=== PATIENT | female | born 1985 | race Caucasian/White ===

== ENCOUNTER 2022-04-11 23:45 | Emergency (ER) | payer BC, SELFPAY ==
--- NOTE | ~2022-04-11 | XR_ITS ---
EXAMINATION: XR CHEST CLINICAL INFORMATION: Palpitations COMPARISON: None TECHNIQUE: Frontal view of the chest was obtained. FINDINGS: No significant abnormality is noted involving the heart, lungs, mediastinum, bony thorax or soft tissues. XR/XR chest 1V IMPRESSION: Unremarkable examination.
--- NOTE | 2022-04-11 23:49 | ECG_ITS ---
Test Reason : PALPITATIONS Blood Pressure : / mmHG Vent. Rate : 118 BPM Atrial Rate : 118 BPM P-R Int : 152 ms QRS Dur : 078 ms QT Int : 314 ms P-R-T Axes : 078 083 024 degrees QTc Int : [address] & T wave abnormality, consider inferior ischemia Abnormal ECG No previous ECGs available Referred By: Generic ED Physician Electronically Signed By:WINSTON ABEL
[2022-04-12 00:09] LABS: MANUAL DIFF FLAG NO
[2022-04-12 00:12] LABS: Basophils Percent Auto 0.5 % (0-2); Eosinophils Absolute Auto 0.1 X10*3/uL (0.0-0.4); Eosinophils Percent Auto 1.7 % (0-4); Hematocrit 38.8 % (37.0-47.0); Hemoglobin 13.3 g/dl (12.0-16.0); Imm Gran Abs Auto 0.01 X10*3/uL (0.00-0.03); Imm Gran Pct Auto 0.2 % (0.0-0.4); Lymphocytes Absolute Auto 1.9 X10*3/uL (1.2-4.9); Lymphocytes Percent Auto 31.7 % (20-40); Mean Corpuscular HGB Conc 34.3 g/dl (31.0-35.0); Mean Corpuscular Hemoglobin 30.2 pg (27.0-33.0); Mean Corpuscular Volume 88.2 fL (80.0-98.0); Mean Platelet Volume 10.5 fL (9.4-12.3); Monocytes Absolute Auto 0.7 X10*3/uL (0.1-1.2); Monocytes Percent Auto 11.4 % (2-11); Neutrophils Absolute Auto 3.3 x10*3/uL (2.0-8.3); Neutrophils Percent Auto 54.5 % (45-73); Platelet Count 252 X10*3/uL (160-400); Red Cell Distribution Width 11.9 % (11.0-16.0)
[2022-04-12 00:14] VITALS: BP 150/78; PULSE 121; RESP 18; TEMP 37.1; O2SAT 100; BMI 22.1
[2022-04-12 00:24] LABS: Anion Gap 16 (12-20); Blood Urea Nitrogen 12 mg/dL (9-16); Calcium 9.4 mg/dL (8.4-10.2); Carbon Dioxide 21 mmol/L (22-29); Chloride 103 mmol/L (96-108); Creatinine Clr Calc Pharmacy 93.7; Estimated Glomerular Filt Rate > 60; Glucose Random 94 mg/dL (60-115); Potassium 3.3 mmol/L (3.3-5.1); Sodium 137 mmol/L (135-145)
[2022-04-12 00:28] LABS: Troponin-I High Sensitivity < 3.5 ng/L (<3.5-17.0)
[2022-04-12 00:36] VITALS: BP 140/79; PULSE 119; RESP 15; TEMP 37; O2SAT 98
[2022-04-12 00:45] LABS: COVID-19 Test Negative (Negative)
--- OUTSIDE RECORDS SUMMARY | 2022-04-12 00:53 | XMS_ITS | Continuity of Care Document ---
:1985 Author Organization [facility] Address [address] [place] [address]- Care Team Providers Name Role Phone Viviana Smith MD Primary Care Physician [place] [facility] [place] 04/28/19 - 08/26/[address] [address]- [facility] Discharge Disposition: A-D/C Home Attending Physician: Telly Hdz MD Admitting Physician: Telly Hdz MD Referring Physician: Telly Hdz MD Allergies, Adverse Reactions, Alerts Substance Reaction Severity Status NKA Active Immunizations Not Given Vaccine Date Status Refusal Reason pneumococcal 23-valent vaccine 12/04/18 Not Given P atient Refuses Medications norethindrone 0.35 mg oral tablet 1 tablet = 0.35 mg, By Mouth, Daily, # 28 tablet, 6 Refills, Maintenance, 03/15/19 13:47:51 EDT, Tablet Start Date: 03/15/19 Stop Date: 09/27/19 Status: Ordered Problem List Condition Effective Dates Status Health Status Informant Contraception management(Confirmed) Active h/o Migraine(Confirmed) Active Oral herpes(Confirmed) Active Pre-eclampsia, severe(Confirmed) Active Social History Social History Type Response Smoking Status Never (less than 100 in life time) entered on: 11/23/18 Sex
--- OUTSIDE RECORDS SUMMARY | 2022-04-12 00:53 | XMS_ITS | Continuity of Care Document ---
:1985 Author Organization [facility] Address [address] [place] [id number]- Care Team Providers Name Role Phone Viviana Smith MD Primary Care Physician Encounter [facility] [place] Date(s): 01/12/20 - 02/11/[address] [address]- [facility] Attending Physician: Roopa Justin Admitting Physician: Ropoa Justin Referring Physician: Roopa Justin Allergies, Adverse Reactions, Alerts Substance Reaction Severity [...]
--- OUTSIDE RECORDS SUMMARY | 2022-04-12 00:53 | XMS_ITS | Continuity of Care Document ---
:1985 Author Organization [facility] Address [address] [place] [address]- Care Team Providers Name Role Phone Viviana Smith MD Primary Care Physician [place] [facility] [place]): 05/29/19 - 10/29/[address] [address]- [facility] Discharge Disposition: A-D/C Home Attending Physician: Viviana Smith MD Admitting Physician: Viviana Smith MD Referring Physician: Viviana Smith MD Allergies, Adverse Reactions, Alerts Substance Reaction [...]
--- OUTSIDE RECORDS SUMMARY | 2022-04-12 00:53 | XMS_ITS | Continuity of Care Document ---
:1985 Author Organization [facility] Address [address] [place] [address]- Care Team Providers Name Role Phone Viviana Smith MD Primary Care Physician [place] [facility] [place] [facility] [place] - 11/02/[address] [address]- [facility] Attending Physician: Not on Staff, Attending MD Referring Physician: Viviana Smith MD Allergies, [...]
--- OUTSIDE RECORDS SUMMARY | 2022-04-12 00:53 | XMS_ITS | Continuity of Care Document ---
:1985 Author Organization [facility] Address [address] [place] [address]- Care Team Providers Name Role Phone Viviana Smith MD Primary Care Physician [place] [facility] [place]): 09/30/19 - 02/11/[address] [address]- [facility] Attending Physician: Not on Staff, Attending MD Referring Physician: Vviiana Smith MD Allergies, Adverse Reactions, Alerts Substance [...]
[2022-04-12 01:45] VITALS: BP 136/67; PULSE 122; RESP 15; TEMP 37.1; O2SAT 99
[2022-04-12 02:09] LABS: Appearance Urine Clear; Color Urine Yellow; Glucose Urine UA Negative (Negative); Leukocyte Esterase Urine Negative (Negative); Nitrite Urine Negative (Negative); PH 6.5 (5.0-9.0); Specific Gravity - Urine <= 1.005 (1.005-1.025); Urine Blood Negative (Negative); Urine Ketones Negative (Negative); Urine Protein Negative (Neg-Trace)
[2022-04-12 02:15] LABS: HCG Quantitative < 2 mIU/mL
--- NOTE | 2022-04-12 02:19 | ED_ITS ---
HPI - Arrhythmia/Palpitations General Chief Complaint: Arrhythmia/Palpitations Stated Complaint: Palpitations Time Seen by Provider: 04/12/22 01:48 Source: patient Mode of arrival: ambulatory History of Present Illness HPI narrative: 36-year-old female who presents with concerns regarding palpitations that started last night approximately 2230 while she was relaxing and viewing social media. Patient denies any particular stress or anxiety at that time but began feeling heart palpitations without sweating or dizziness and denies any nausea or vomiting. Patient states that she is had these before but generally it is more transient and the palpitation see experience this evening persisted for several minutes. Patient does not currently feel palpitations (her heart rate is noted to be 122). She otherwise denies any prescription medications, use of alcohol, but states she does suffer from anxiety and being hyper focused on her body. Related Data Allergies Allergy/AdvReac Type Severity Reaction Status Date / Time No Known Allergies Allergy Unverified 03/29/20 19:37 [No Known Allergies*] Review of Systems Review of Systems: Pertinent positives and negatives as stated in HPI 10 point review of systems is otherwise negative. PMFSH Past Medical History Source: nursing notes reviewed Social History Social History Advance Directives: No Advance Directives Information Provided: Yes Physical Exam Vital Signs: Vital Signs: Last Vital Signs Temp 99.0 F 04/12/22 03:58 Pulse 95 04/12/22 03:58 Resp 16 04/12/22 03:58 BP 126/72 04/12/22 03:58 Pulse Ox 100 04/12/22 03:58 O2 Del Method 04/12/22 03:58 BMI result Body Mass Index 22.1 VITAL SIGNS: Reviewed. GENERAL: Well developed, well nourished, quite thin, in no acute distress. HEAD: Normocephalic/atraumatic EYES: PERRLA, EOMI EARS: Ext canals without abnormality OROPHARYNX: no oral lesions noted, posterior pharynx clear LUNGS: Normal breath sounds. No adventitious sounds or accessory muscle use. SpO2<99> CARDIOVASCULAR: Regular rate and rhythm without noted murmurs ABDOMEN: Soft, non-tender, non-distended with bowel sounds. MUSCULOSKELETAL: No tenderness, deformities, or effusions noted on gross inspection. EXTREMITIES: No cyanosis, clubbing or edema. SKIN: Inspection of the skin reveals no rashes NEUROLOGIC: Alert and oriented x 4. Strength and sensation to light touch were grossly intact x 4. Course Course Course Narrative: 36-year-old female with history and clinical presentation consistent with possible anxiety but will evaluate for anemia, infection, thyroid etiology patient is otherwise hemodynamically stable and appears well. Of note, on observing the color of her urine it is almost color of water. Review of all investigations otherwise negative for acute findings to better explain patient's current presentation. Heart rate is noted to be in the 90s at this time. All results discussed with her at bedside and she understands that she needs to follow-up with primary care provider and further discuss other out patient interventions as she has already had a Holter evaluation. MDM - Arrhythmia/Palpitations Lab Data Result diagrams: 04/11/22 23:58 04/11/22 23:58 Labs: Lab Results 04/11/22 04/11/22 04/11/22 Range/Units 23:58 23:58 23:58 WBC 6.0 (4.8-10.8) X10*3/uL RBC 4.40 (4.20-5.50) X10*6/uL Hgb 13.3 (12.0-16.0) g/dl Hct 38.8 (37.0-47.0) % MCV 88.2 (80.0-98.0) fL MCH 30.2 (27.0-33.0) pg MCHC 34.3 (31.0-35.0) g/dl RDW 11.9 (11.0-16.0) % Plt Count 252 (160-400) X10*3/uL MPV 10.5 (9.4-12.3) fL Immature Gran % (Auto) 0.2 (0.0-0.4) % Neut % (Auto) 54.5 (45-73) % Lymph % (Auto) 31.7 (20-40) % [place] % (Auto) 11.4 H (2-11) % Eos % (Auto) 1.7 (0-4) % Baso % (Auto) 0.5 (0-2) % Lymph # (Auto) 1.9 (1.2-4.9) X10*3/uL [place] # (Auto) 0.7 (0.1-1.2) X10*3/uL Eos # (Auto) 0.1 (0.0-0.4) X10*3/uL Baso # (Auto) 0.0 (0.0-0.2) X10*3/uL Abs Immat Gran (auto) 0.01 (0.00-0.03) X10*3/uL Absolute Neuts (auto) 3.3 (2.0-8.3) x10*3/uL Absolute Nucleated RBC 0.000 (0.0-0.012) X10*3/uL Nucleated RBC % (auto) 0.0 (0.0-0.2) /100WBC Sodium 137 (135-145) mmol/L Potassium 3.3 (3.3-5.1) mmol/L Chloride 103 (96-108) mmol/L Carbon Dioxide 21 L (22-29) mmol/L Anion Gap 16 (12-20) BUN 12 (9-16) mg/dL Creatinine 0.70 (0.5-1.4) mg/dL Estim Creat Clear Calc 93.7 Estimated GFR > 60 Random Glucose 94 (60-115) mg/dL Calcium 9.4 (8.4-10.2) mg/dL Troponin I High Sens (<3.5-17.0) ng/L TSH 3.98 (0.32-4.0) uIU/mL Beta HCG, Quant < 2 mIU/mL Urine Color Urine Appearance Urine pH (5.0-9.0) Ur Specific [place] (1.005-1.025) Urine Protein (Neg-Trace) mg/dL Urine Glucose (UA) (Negative) mg/dL Urine Ketones (Negative) mg/dL Urine Blood (Negative) Urine Nitrite (Negative) Ur Leukocyte Esterase (Negative) COVID-19 (GEOVANNI) Negative (Negative) COVID-19 Clin Com See Note 04/11/22 04/12/22 Range/Units 23:58 02:03 WBC (4.8-10.8) X10*3/uL RBC (4.20-5.50) X10*6/uL Hgb (12.0-16.0) g/dl Hct (37.0-47.0) % MCV (80.0-98.0) fL MCH (27.0-33.0) pg MCHC (31.0-35.0) g/dl RDW (11.0-16.0) % Plt Count (160-400) X10*3/uL MPV (9.4-12.3) fL Immature Gran % (Auto) (0.0-0.4) % Neut % (Auto) (45-73) % Lymph % (Auto) (20-40) % [place] % (Auto) (2-11) % Eos % (Auto) (0-4) % Baso % (Auto) (0-2) % Lymph # (Auto) (1.2-4.9) X10*3/uL [place] # (Auto) (0.1-1.2) X10*3/uL Eos # (Auto) (0.0-0.4) X10*3/uL Baso # (Auto) (0.0-0.2) X10*3/uL Abs Immat Gran (auto) (0.00-0.03) X10*3/uL Absolute Neuts (auto) (2.0-8.3) x10*3/uL Absolute Nucleated RBC (0.0-0.012) X10*3/uL Nucleated RBC % (auto) (0.0-0.2) /100WBC Sodium (135-145) mmol/L Potassium (3.3-5.1) mmol/L Chloride (96-108) mmol/L Carbon Dioxide (22-29) mmol/L Anion Gap (12-20) BUN (9-16) mg/dL Creatinine (0.5-1.4) mg/dL Estim Creat Clear Calc Estimated GFR Random Glucose (60-115) mg/dL Calcium (8.4-10.2) mg/dL Troponin I High Sens < 3.5 (<3.5-17.0) ng/L TSH (0.32-4.0) uIU/mL Beta HCG, Quant mIU/mL Urine Color Yellow Urine Appearance Clear Urine pH 6.5 (5.0-9.0) Ur Specific [place] <= 1.005 (1.005-1.025) Urine Protein Negative (Neg-Trace) mg/dL Urine Glucose (UA) Negative (Negative) mg/dL Urine Ketones Negative (Negative) mg/dL Urine Blood Negative (Negative) Urine Nitrite Negative (Negative) Ur Leukocyte Esterase Negative (Negative) COVID-19 (GEOVANNI) (Negative) COVID-19 Clin Com ECG Data Attestation: I personally reviewed and interpreted this ECG as follows: Prior ECG tracings: not available for review Interpretation: Sinus tachycardia, HR-118, no STEMI, AK/QRS/QTC is within normal limits. Discharge Plan Discharge Clinical Impression: Palpitations, Anxiety Patient Disposition: Home, Self-Care Instructions: Anxiety (ED), Heart Palpitations (ED) Additional Instructions: 1. Please follow-up with your primary care provider on Thursday.
[2022-04-12 02:52] LABS: Thyroid Stimulating Hormone 3.98 uIU/mL (0.32-4.0)
[2022-04-12 03:58] VITALS: BP 126/72; PULSE 95; RESP 16; TEMP 37.2; O2SAT 100
[2022-04-12 04:33] VITALS: BP 131/67; PULSE 91; RESP 20; O2SAT 98
== END 2022-04-12 04:35 | disposition home or self-care (01) ==
PROVIDERS: Emergency Provider Student in an Organized Health Care Education/Training Program
DX: R00.2 Palpitations (principal); F41.9 Anxiety disorder, unspecified; Z20.822 Contact with and (suspected) exposure to COVID-19
CPT/HCPCS: 36415; 71045; 80048; 81003; 84443; 84484; 84702; 85025; 87635; 93005; 99283; 99284